=== PATIENT | male | born 1980 | race Caucasian/White ===

== ENCOUNTER → 2016-07-15 | Outpatient (CLI) | payer BC ==
--- NOTE | 2016-07-15 16:25 | REP ---
MR LUMBAR SPINE WITHOUT CONTRAST: HISTORY: Back and right leg pain. Decreased signal intensity on T2-weighted images is present in the L4-5 and L5-S1 intervertebral discs. The L3-4 through L5-S1 intervertebral discs are decreased in height. These findings are consistent with disc degeneration. There is no disc bulge or herniation at the L1-2 and L2-3 levels. The nerves exit the neural foramina without compression. A diffuse disc bulge is present at the L3-4 level. There is minimal compression of the thecal sac. The L3 nerves exit the neural foramina without compression. A diffuse disc bulge and a mild sized central disc extrusion are present at the L4-5 level. There is inferior migration of the disc material. There is mild compression of the thecal sac and L5 nerves as they exit the thecal sac and in the left L5 lateral recesses. There is hypertrophy of the posterior articulating facets. The L4 nerves exit the neural foramina without compression. A diffuse disc bulge and small left paracentral and intraforaminal disc protrusion are present at the L5-S1 level. The disc protrusion abuts the left S1 nerve. There is no thecal sac compression. There is hypertrophy of the posterior articulating facets. There are 2 mm of retrolisthesis of L5 on S1. The L5 nerves exit the neural foramina without compression. The conus medullaris is normal in appearance terminating at the level of the T12-L1 intervertebral disc . Normal signal intensity is present in the lumbar vertebral bodies. IMPRESSION: 1. Diffuse disc bulge at the L3-4 level with minimal thecal sac compression. 2. Diffuse disc bulge and mild sized central disc extrusion at the L4-5 level with mild compression of the thecal sac and L5 nerves as they exit the thecal sac and in the L5 lateral recesses. 3. Diffuse disc bulge and small left paracentral and intraforaminal disc protrusion at the L5-S1 level. The disc protrusion abuts the left S1 nerve. Signed by Vidal Gu MD 07/15/2016 04:42 P
== END ==
LOC: M RAD 14:43
PROVIDERS: ATTEND Chiropractor
DX: M51.26 Other intervertebral disc displacement, lumbar region (principal); M51.27 Other intervertebral disc displacement, lumbosacral region

== ENCOUNTER → 2016-08-01 | Outpatient (REF) | payer BC ==
[~2016-08-01] MED LIST: CYCL10TA PO; GABA600T PO; NAPR500T2 PO; [UNRECOGNIZED DRUG - CODE] IV
== END ==
LOC: M LABDRAW1 15:05
PROVIDERS: ATTEND Orthopaedic Surgery
DX: M51.26 Other intervertebral disc displacement, lumbar region (principal)

== ENCOUNTER 2016-08-09 14:01 | Day surgery (SDC) | payer BC ==
[~2016-08-09] VITALS: Ht 182.9 cm; Wt 81.6 kg
[~2016-08-09 14:01] MED LIST changes: +CelecoXIB (CeleBREX) 100 MG CAP PO ONE; -NAPR500T2 PO; +NAPR500T3 PO; +PERCOCET 5MG/325MG TAB PO ONE; +PREGABALIN 75 MG CAP(LYRICA) PO ONE; -[UNRECOGNIZED DRUG - CODE] IV
[2016-08-09] MEDS ORDERED: LR 1,000 ML IV ONE (14:15)
[2016-08-09] MEDS ORDERED: [UNRECOGNIZED DRUG - CODE] IM (14:29)
[2016-08-09] MEDS ORDERED: BUPIVACAINE/EPIN 0.25% 30 ML VIAL As Ordered ONE (16:59)
[2016-08-09] MEDS ORDERED: BACITRACIN PWD 50,000 UNITS VIAL As Ordered ONE (17:00)
[2016-08-09] MEDS ORDERED: THROMBIN SOLN 20,000 UNITS KIT As Ordered ONE (17:00)
[2016-08-09] MEDS ORDERED: ceFAZolin 2 GM/D5W 50 ML IV BAG (J0690) As Ordered ONE (17:38)
[2016-08-09] MEDS ORDERED: PROPOFOL 200 MG/20 ML VIAL As Ordered ONE (17:48)
[2016-08-09] MEDS ORDERED: fentaNYL 250 MCG/5 ML INJECTION (J3010) As Ordered ONE (17:48)
[2016-08-09] MEDS ORDERED: MIDAZOLAM INJ 2 MG/2 ML VIAL (J2250) As Ordered ONE (17:48)
[2016-08-09] MEDS ORDERED: ROCURONIUM BROMIDE 50 MG/5 ML VIAL/SYRINGE As Ordered ONE ×2 (17:48→18:29)
[2016-08-09] MEDS ORDERED: LIDOCAINE 2% INJ 100 MG/5 ML SDV (FOR ANES.) As Ordered ONE (17:48)
[2016-08-09] MEDS ORDERED: NEOSTIGMINE 1MG/ML 5 ML SYRINGE (J2710) As Ordered ONE (18:28)
[2016-08-09] MEDS ORDERED: GLYCOPYRROLATE INJ 0.2 MG/ML 2 ML VIAL As Ordered ONE (18:28)
[2016-08-09] MEDS ORDERED: ONDANSETRON 4MG/2ML VIAL (J2405) As Ordered ONE ×2 (18:28→19:31)
[2016-08-09] MEDS ORDERED: HYDROmorphone HCL 2 MG/ML 1ML VIAL (J1170) As Ordered ONE (18:31)
--- NOTE | 2016-08-09 18:34 | REP ---
Clinical: Herniated disc. Technique: Portable intraoperative cross-table view. Findings: Single portable cross-table view of the lumbosacral spine demonstrates probe of the up posterior approach at the L4-5 interspinous level. Impression: Probe at the L4-5 level. Signed by Donnie Bhardwaj MD 08/09/2016 06:25 P
[2016-08-09] MEDS ORDERED: DESFLURANE 240 ML INHALANT As Ordered ONE (18:56)
[2016-08-09] MEDS ORDERED: D5W/LR 1,000 ML IV SCH (19:45)
[2016-08-09] MEDS ORDERED: ONDANSETRON 4MG/2ML VIAL (J2405) IV PRN (19:45)
[2016-08-09] MEDS ORDERED: LR 1,000 ML IV SCH (19:45)
[2016-08-09] MEDS ORDERED: fentaNYL 100 MCG/2 ML INJECTION (J3010) IV PRN (19:45)
[2016-08-09] MEDS ORDERED: PERCOCET 5MG/325MG TAB PO PRN ×2 (19:45)
[2016-08-09] MEDS ORDERED: MEPERIDINE INJ 25 MG/ML VIAL (J2175) IV PRN (19:45)
[2016-08-09] MEDS ORDERED: HYDROmorphone HCL 1 MG/ML SYRINGE (J1170) IV PRN ×2 (19:45)
[2016-08-09] MEDS ORDERED: PROMETHAZINE INJ 25 MG/ML VIAL (J2550) IV PRN (19:45)
[2016-08-09] MEDS ORDERED: METOCLOPRAMIDE INJ 10MG/2ML VIAL (J2765) IV PRN (19:45)
[2016-08-09 20:30] VITALS: BP 172/108
[2016-08-09] MEDS: DOCUSATE SODIUM 100 MG CAP PO SCH (21:17)
[2016-08-09] MEDS: ASCORBIC ACID 500 MG TAB PO SCH (21:17)
[2016-08-09] MEDS: PREGABALIN 50 MG CAP (LYRICA) PO SCH (21:18)
[2016-08-09 21:30] VITALS: BP 129/93
[2016-08-09 22:30] VITALS: BP 152/72
[2016-08-09 23:30] VITALS: BP 141/88
[2016-08-10 00:30] VITALS: BP 119/79
[2016-08-10] MEDS: PERCOCET 5MG/325MG TAB PO PRN ×2 (03:57→09:16)
[2016-08-10 04:00] VITALS: BP 111/70
[2016-08-10 08:30] VITALS: BP 124/87
[2016-08-10] MEDS ORDERED: CelecoXIB (CeleBREX) 100 MG CAP PO ONE (09:00)
[2016-08-10] MEDS: DOCUSATE SODIUM 100 MG CAP PO SCH (09:05)
[2016-08-10] MEDS: ASCORBIC ACID 500 MG TAB PO SCH (09:05)
[2016-08-10] MEDS: PREGABALIN 50 MG CAP (LYRICA) PO SCH (09:05)
--- NOTE | 2016-08-11 08:27 | RO ---
DATE OF PROCEDURE: 08/09/2016 PREOPERATIVE DIAGNOSIS: Right lower extremity radiculopathy secondary to right L4-5 disc herniation/extrusion. POSTOPERATIVE DIAGNOSIS: Right lower extremity radiculopathy secondary to right L4-5 disc herniation/extrusion. PROCEDURE PROPOSED: Right L4-5 microdiscectomy for decompression of thecal sac and nerve roots. INTRAOPERATIVE FINDINGS: Include larger than expected disc herniation extruded at L4-5. SURGEON: Dr. Ad Gonsalez HAZARDOUS MATERIAL TECHNICIAN: Freddie Willoughby, KRIS ANESTHESIA: General endotracheal. ESTIMATED BLOOD LOSS: Less than 30 mL, replaced with crystalloid. COMPLICATIONS: No complications. INDICATIONS: Intractable pain on the right lower extremity for a number of weeks despite conservative management, failure of epidural injections. The patient has elected for microdiscectomy. Consent reviewed in detail with the patient, including steve discussion of the pathology involved, procedure proposed, alternatives including doing nothing or fusion surgery, risks, including, but not limited to pain, failure, incomplete relief, need for additional surgery, nerve injury, bleeding, blood clots or other problems such as infection. The patient agreed to proceed with surgery. DESCRIPTION OF PROCEDURE: Identified in the holding area. Site and side verified. Brought to the operating room. General endotracheal anesthesia was administered. He was positioned on the Jimy frame for exposure of the lumbar spine. I stood on the patient's right side, Mr. Willoughby on the patient's left side. A time-out was accomplished. Incision was outlined with a marking pen based on bony landmarks. Skin infiltrated with 0.25% Marcaine with epinephrine. Spinal needle was placed at 4-5. Cross-table lateral obtained to verify level. Incision was made with a 10 blade knife and developed down through skin and subcuticular tissues of the posterior lumbar fascia. The posterior lumbar fascia was reflected off the spinous processes of 4-5 and dissection continued down to the 4-5 interspace, which was exposed. A divot was drilled in the posterior lamina with the high-speed drill and a Sevilla-Woodrow was placed in the lamina divot. This verified level at L4-5 with a cross-table lateral x-ray. Next, once this was accomplished, my loupes were removed and the operating microscope was brought in for the procedure. This facilitated participation of Mr. Willoughby, my licensed nursing assistant. Next, high-speed bur was utilized to implement a right unilateral laminotomy extending superiorly to lamina 4 so that I could elevate ligamentum flavum using curved curette. Inferiorly, also at the lamina of 5. Once the ligamentum flavum was elevated with a curette. I utilized Kerrisons to remove ligamentum flavum and exposing the thecal sac. Next, a Sevilla-Woodrow was utilized to reflect thecal sac medially. Mr. Willoughby also retracted with the Jaren retractor. Next, disc material was appreciated, posterior longitudinal ligament was opened, annulus had a rupture. Disc material was able to be freed using a Sevilla-Woodrow, as well as using pituitaries. The disc material was larger than expected on the MRI, extruded and elevating the axillary, as well as the shoulder of the L5 nerve root. Next, disc material was removed in one large fragment and several small fragments. Bipolar cautery was utilized for hemostasis. Thecal sac was inspected and found to be free from leaks and there was no active bleeding. Thrombin Gelfoam was utilized and removed at the conclusion of the case. Next, irrigation was accomplished, including irrigation of concentrated bacitracin. Next, I did spray a very thin layer of DuraSeal over the thecal sac as an adhesion barrier. Next, retractors were removed. Posterior lumbar fascia reapproximated with interrupted stitch, deep dermis with interrupted stitch. Pernio dressing was applied. The patient log-rolled to hospital bed, extubated, moved to recovery room in good condition. Of note, the patient appeared to have better motor function and decreased pain in the recovery room. For further details, please refer to the medical record. Mr. Willoughby was present and participated in the entirety of the case.
--- NOTE | 2016-08-21 15:24 | DSES ---
DATE OF ADMISSION: 08/09/2016 DATE OF DISCHARGE: 08/10/2016 ATTENDING PHYSICIAN: Dr. Ad Gonsalez ADMITTING DIAGNOSIS: Right lower extremity radiculopathy secondary to L4-5 disc herniation. DISCHARGE DIAGNOSIS: Right lower extremity radiculopathy secondary to L4-5 disc herniation, status post right L4-5 micro-discectomy for decompression of thecal sac and nerve roots. HISTORY OF PRESENT ILLNESS: The patient is a 36-year-old male with intractable right lower extremity pain for a number of weeks despite conservative treatment and failure of epidural steroid injections. He elected for a right L4-5 micro-discectomy with Dr. Gonsalez. OPERATION PERFORMED: Right L4-5 micro-discectomy for decompression of thecal sac and nerve roots. HOSPITAL COURSE: The patient underwent a right L4-5 micro-discectomy under general anesthesia which was uneventful. His hospital course was without complication and he was discharged on oral pain medications. He was instructed to resume his preoperative medications and diet. The patient will use his thromboembolic-deterrent stockings as recommended to prevent deep vein thrombosis. He will followup in our office in approximately three days for reevaluation or sooner if there is any increased pain, drainage, bleeding, redness, numbness, tingling or radiating pain into his legs, fever greater than 101 degrees, or any other concerns. Please see the medical record for additional details. AAKASH
== END 2016-08-10 10:30 | disposition home or self-care (01) ==
LOC: M SDC 14:01 → M PED 20:21 → M SDC 08-10 10:30
PROVIDERS: ATTEND Orthopaedic Surgery
DX: M51.16 Intervertebral disc disorders with radiculopathy, lumbar region (principal); R20.0 Anesthesia of skin; F17.210 Nicotine dependence, cigarettes, uncomplicated; Z79.899 Other long term (current) drug therapy; Z91.013 Allergy to seafood
CPT/HCPCS: 36415; 63030; 72110; 86850; 86900; 86901; 88304; 96361; 96375; 96376; C1763; J0690; J1170; J2250; J2405; J2710; J3010

== ENCOUNTER 2016-08-12 12:48 | Inpatient (IN) | payer BC ==
[~2016-08-12] VITALS: Ht 182.9 cm; Wt 80.0 kg
[~2016-08-12 12:48] MED LIST changes: -CelecoXIB (CeleBREX) 100 MG CAP PO ONE; -PERCOCET 5MG/325MG TAB PO ONE; -PREGABALIN 75 MG CAP(LYRICA) PO ONE; +[UNRECOGNIZED DRUG - CODE] IM
[2016-08-12] MEDS ORDERED: MORPHINE 4 MG/ML 1ML SYRINGE IV ONE ×2 (13:45→14:30)
[2016-08-12] MEDS ORDERED: ACETAMINOPHEN TAB 650MG DOSE (2X325MG) PO ONE (14:00)
[2016-08-12] MEDS ORDERED: NS 1,000 ML IV ONE (14:00)
[2016-08-12 14:08] LABS: BASO # 0.1 K/mm3 (0.0-0.2); BASO % 0.6 % (0.0-1.0); EOS % 0.5 % (0.0-3.0); LARGE UNSTAINED CELL # 0.2 K/mm3 (0.0-0.4); LARGE UNSTAINED CELL % 1.7 % (0.0-4.0); LYMPH # 1.9 K/mm3 (1.5-4.5); LYMPH % 20.2 % (24.0-44.0); MEAN CORPUSCULAR HEMOGLOBIN 36.1 pg (27.0-33.0); MEAN CORPUSCULAR VOLUME 103.2 fl (80.0-96.0); MONO # 0.6 K/mm3 (0.0-0.8); MONO % 6.8 % (0.0-5.0); NEUTROPHILS # 6.6 K/mm3 (1.8-7.7); NEUTROPHILS % 70.1 % (36.0-66.0); PLATELET COUNT, AUTOMATED 191 k/mm3 (150-450); RED CELL DISTRIBUTION WIDTH 12.1 % (11.5-14.5); WHITE BLOOD COUNT 9.5 K/mm3 (4.0-10.0)
[2016-08-12 14:28] LABS: ALBUMIN 3.5 GM/DL (3.2-5.2); ALKALINE PHOSPHATASE 47 U/L (45-117); ALT/SGPT 50 U/L (12-78); AST/SGOT 27 U/L (15-37); BILIRUBIN,DIRECT 0.2 MG/DL (0.0-0.2); BILIRUBIN,TOTAL 1.3 MG/DL (0.2-1.0); TOTAL PROTEIN 7.4 GM/DL (6.4-8.2)
[2016-08-12] MEDS ORDERED: BUPIVACAINE/EPIN 0.25% 30 ML VIAL As Ordered ONE (14:31)
[2016-08-12] MEDS ORDERED: BACITRACIN PWD 50,000 UNITS VIAL As Ordered ONE (14:31)
[2016-08-12] MEDS ORDERED: ROCURONIUM BROMIDE 50 MG/5 ML VIAL/SYRINGE As Ordered ONE (14:31)
[2016-08-12] MEDS ORDERED: dexameTHASONE 4 MG/ML 1ML VIAL (J1100) As Ordered ONE (14:31)
[2016-08-12] MEDS ORDERED: THROMBIN SOLN 20,000 UNITS KIT As Ordered ONE (14:31)
[2016-08-12] MEDS ORDERED: fentaNYL 100 MCG/2 ML INJECTION (J3010) IV ONE (15:00)
--- NOTE | 2016-08-12 15:31 | CR ---
DATE OF CONSULTATION: 08/12/2016 ATTENDING PHYSICIAN: Ad Gonsalez MD CHIEF COMPLAINT: Increasing back pain, inability to walk. HISTORY: This is a pleasant 36-year-old male patient that on 08/09/2016 underwent a right unilateral decompression of L4-[address] Gonsalez. He did extremely well post operatively and on 08/10 he was discharged to home. At that point he was having no difficulties, his back pain had actually resolved and very minimal soreness in his back and no pain down his right leg at all. 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 On Friday he awoke from bed and was feeling a little bit uncomfortable with some soreness in his back and around 11:00 p.m. he developed severe pain in his back and inability to ambulate. He needed assistance to get around. He denied any incontinence. Denied any injury, denied lifting or carrying any items, noted just increased back pain, inability to completely stand erect and severe pain down his right leg. He attempted to drink some water. That made him nauseated. He tried to eat a bite of pizza. That made him nauseated. That was around 2:00 on Friday, 08/11. He had progressively noted that he felt weakness in both lower extremities. He started to develop chills, fevers and when he coughed his right leg pain increased and his back pain increased. He then went to bed. He did not arise again until 11: 00 this morning and when he to get out of bed; he was unable to get out of bed. He rated his pain as 10/10, so severe that he had to have assistance from his girlfriend to stand erect. With her assistance, he was able to walk slowly to the bathroom. He was able to urinate. There was no loss of urine control. No loss of fecal control. But he had severe pain down his right leg, weakness in his lower extremities. He felt weakness in both hips and he was unable to stand completely erect. His girlfriend then assisted to get to the bed where she would have to help him roll over. He called the orthopedic group where he was directed to the emergency room due to his inability to ambulate without assistance and his increased back pain. He continues to complain of feeling hot all over, he feels that he is chilled. He feels severe back pain and weakness in the right lower extremity. He again continues denying loss of bowel or bladder control. Denies any chest pain and shortness breath. Denies difficulty breathing. Does note fevers and chills and increased back pain and pain down his right leg. ALLERGIES: BEE STINGS. SHRIMP. CURRENT MEDICATIONS: - Naproxen 500 mg twice a day - gabapentin 600 mg three times a day - Percocet 5/325 as needed for pain PAST SURGICAL HISTORY: Includes the above-mentioned right L4-5 unilateral decompression on 08/09/2016. PAST MEDICAL HISTORY: Negative, except for the L4-5 disc herniation and lumbar degenerative disc disease. It should be noted that prior to the surgery he had persistent right leg pain and back pain. REVIEW OF SYSTEMS: See HPI. PHYSICAL EXAMINATION: Reveals a well-nourished, well-developed, alert male patient in obvious distress. He grimaces with attempting to roll over into the bed. He lays in the position on the hospital stretcher. He is unable to roll over or change positions without assistance. Deep tendon reflexes is 1 at the left ankle, absent at the right ankle, trace at both knees. There is decreased light touch along the dorsum of the foot on the right side as well as over the right great toe on exam. Perirectal and peritesticular sensation is intact. Muscle strength is 3/5 in EHL and ankle dorsiflexion on the right side. Quad and hip flexor appears to be 5/5 though difficult to tell on the right side as he has severe breakthrough pain with muscle testing. Left-sided muscle strength seems grossly 5/5 in the major muscle groups. Exam of the wound does reveal some increased warmth to touch around the wound. There is no discharge noted. There is quite significant tenderness to light touch. SI joints were nontender to palpation. Dorsalis pedis, posterior tibial pulses are palpable on exam. No pain on passive range of motion of the great toes on either side. The calves are soft, nontender to palpation. Unable to do straight leg raise testing due to his inability completely either leg. Unable to do gait training due to his current pain. Neck is supple without adenopathy or jugular venous distention (JVD). Lungs are clear to auscultation without rales or wheeze. Heart: Regular rate and rhythm though it is rapid. Current vital signs: Blood pressure 122/79, pulse 110, temperature 100.7, respirations 18, oxygen saturation of 98.0. IMPRESSION: Severe worsening back pain and inability to ambulate without assistance. PLAN: I discussed the patient with Dr. Gonsalez. He needs a stat MRI with and without contrast. Will also obtain CBC, sedimentation rate, C-reactive protein, chemistry and the urinalysis. Will start an IV TKO, morphine for pain control. Blood cultures were obtained as well. Will also get the process going for an surgical exploration of his wound. AAKASH
[2016-08-12 15:34] LABS: ANION GAP 8 MEQ/L (8-16); BLOOD UREA NITROGEN 10 MG/DL (7-18); CARBON DIOXIDE LEVEL 28 MEQ/L (21-32); CHLORIDE LEVEL 101 MEQ/L (98-107); GLOMERULAR FILTRATION RATE > 60.0 (>60); GLUCOSE, FASTING 77 MG/DL (70-105); POTASSIUM SERUM 4.2 MEQ/L (3.5-5.1); SODIUM LEVEL 137 MEQ/L (136-145)
[2016-08-12] MEDS ORDERED: fentaNYL 100 MCG/2 ML INJECTION (J3010) As Ordered ONE ×3 (16:02→18:52)
[2016-08-12] MEDS ORDERED: MIDAZOLAM INJ 2 MG/2 ML VIAL (J2250) As Ordered ONE (16:03)
[2016-08-12] MEDS ORDERED: OXYC1TAB23 PO (16:39)
[2016-08-12] MEDS ORDERED: ceFAZolin 1GM INJ (J0690) As Ordered ONE (16:45)
[2016-08-12] MEDS ORDERED: VANCOMYCIN 1000 MG/20 ML VIAL (J3370) As Ordered ONE (16:45)
--- NOTE | 2016-08-12 17:20 | REPUSA ---
MRI of the lumbar spine with and without contrast Clinical statement: Pain. Patient status postsurgery. Rule out abscess. Technique: Multiecho multiplanar MRI images of the lumbar spine were obtained before and after admin istration of intravenous gadolinium contrast. comparison: 07/15/2016. Findings: The lumbar vertebral bodies are in satisfactory position and alignment. Right-sided laminec birgit changes are noted at L4 and L5. Postsurgical edema is noted, without any loculated fluid collect ions. No fractures or dislocations are demonstrated. Normal heterogeneous bone marrow signal is noted . No osseous tumors are seen. The intervertebral disc heights are well maintained and demonstrate nor mal signal. The filum terminale and conus medullaris appear unremarkable. The spinal cord demonstrate s normal signal and contour. The surrounding soft tissues are within normal limits. At L3/L4, there is a mild disc osteophyte complex and disc bulge. There is no evidence of disc herni ation or title canal stenosis. The neural foramen are patent. At L4/L5, there is a large central disc protrusion measuring 0.8 x 1.9 cm. Significant mass effect o n the central canal is noted. There is a focal area of increased signal in the posterior disc at this level. There is moderate bilateral neural foraminal narrowing. At L5/S1, there is a mild disc osteophyte complex and disc bulge. There is no evidence of disc hernia tion or central canal stenosis. The neural foramen are patent. Impression: 1. Right-sided laminectomy changes at L4/L5. Postsurgical changes are seen at the site, but no locula reynaldo fluid collection to suggest abscess or hematoma. 2. Large central disc protrusion at L4/L5 with significant mass of the central thecal sac. Moderate bilateral neural foraminal narrowing is noted. 3. Stable mild disc bulging at L3/L4 and L5/S1.
[2016-08-12] MEDS ORDERED: ceFAZolin 2 GM/D5W 50 ML IV BAG (J0690) As Ordered ONE (17:38)
[2016-08-12] MEDS ORDERED: LABETALOL HCL 100 MG/20 ML VIAL As Ordered ONE (17:45)
[2016-08-12] MEDS ORDERED: HYDROmorphone HCL 2 MG/ML 1ML VIAL (J1170) As Ordered ONE (17:46)
[2016-08-12] MEDS ORDERED: PROPOFOL 200 MG/20 ML VIAL As Ordered ONE (17:57)
[2016-08-12] MEDS ORDERED: ONDANSETRON 4MG/2ML VIAL (J2405) As Ordered ONE (18:06)
[2016-08-12] MEDS ORDERED: SUGAMMADEX SODIUM 500 MG/5 ML VIAL (BRIDION) As Ordered ONE (18:22)
[2016-08-12] MEDS ORDERED: PERCOCET 5MG/325MG TAB As Ordered ONE (18:52)
[2016-08-12] MEDS: PERCOCET 5MG/325MG TAB PO PRN ×2 (19:00→23:46)
[2016-08-12] MEDS: fentaNYL 100 MCG/2 ML INJECTION (J3010) IV PRN ×4 (19:03→19:22)
[2016-08-12] MEDS ORDERED: LR 1,000 ML IV SCH (19:15)
[2016-08-12] MEDS ORDERED: ONDANSETRON 4MG/2ML VIAL (J2405) IV PRN (19:15)
[2016-08-12] MEDS: D5W/LR 1,000 ML IV SCH (19:15)
[2016-08-12] MEDS ORDERED: HYDROmorphone HCL 1 MG/ML SYRINGE (J1170) IV PRN (19:15)
[2016-08-12] MEDS ORDERED: PERCOCET 5MG/325MG TAB PO PRN ×2 (19:15)
[2016-08-12] MEDS ORDERED: MORPHINE 4 MG/ML 1ML SYRINGE IV PRN (19:15)
[2016-08-12 19:30] VITALS: BP 133/78
[2016-08-12 20:00] VITALS: BP 130/78
[2016-08-12] MEDS: BACTRIM 160MG/800MG DS TAB PO SCH (20:56)
[2016-08-12] MEDS: GABAPENTIN 300 MG CAP PO SCH (20:56)
[2016-08-12 21:00] VITALS: BP 120/70
[2016-08-12 22:00] VITALS: BP 115/65
[2016-08-12 23:00] VITALS: BP 110/75
[2016-08-13] VITALS: BP 108/71
[2016-08-13 04:00] VITALS: BP 120/62
[2016-08-13] MEDS: PERCOCET 5MG/325MG TAB PO PRN ×2 (04:41→08:51)
[2016-08-13 06:00] VITALS: BP 143/83
[2016-08-13 06:56] LABS: BASO % 0.3 % (0.0-1.0); EOS % 0.4 % (0.0-3.0); LARGE UNSTAINED CELL # 0.1 K/mm3 (0.0-0.4); LARGE UNSTAINED CELL % 0.8 % (0.0-4.0); LYMPH # 0.8 K/mm3 (1.5-4.5); LYMPH % 9.2 % (24.0-44.0); MEAN CORPUSCULAR HEMOGLOBIN 35.9 pg (27.0-33.0); MEAN CORPUSCULAR VOLUME 102.8 fl (80.0-96.0); MONO # 0.4 K/mm3 (0.0-0.8); MONO % 4.3 % (0.0-5.0); NEUTROPHILS # 6.9 K/mm3 (1.8-7.7); PLATELET COUNT, AUTOMATED 214 k/mm3 (150-450); RED CELL DISTRIBUTION WIDTH 12.1 % (11.5-14.5); WHITE BLOOD COUNT 8.1 K/mm3 (4.0-10.0)
[2016-08-13] MEDS ORDERED: BACTRIM 160MG/800MG DS TAB PO ONE (07:15)
[2016-08-13] MEDS ORDERED: BACT800T5 PO (07:43)
[2016-08-13] MEDS: D5W/LR 1,000 ML IV SCH (07:45)
[2016-08-13] MEDS: BACTRIM 160MG/800MG DS TAB PO SCH (08:46)
[2016-08-13] MEDS: GABAPENTIN 300 MG CAP PO SCH (08:46)
--- NOTE | 2016-08-13 09:07 | RO ---
DATE OF PROCEDURE: 08/12/2016 PREOPERATIVE DIAGNOSIS: Epidural fluid collection. POSTOPERATIVE DIAGNOSIS: Epidural hematoma. PROCEDURE: Wound exploration right L4-5 laminotomy defect and evacuation of hematoma. SURGEON: Ad Gonsalez MD SENIOR COMPENSATION CONSULTANT: BARRIE Wade ANESTHESIA: General. INTRAOPERATIVE FINDINGS: Include hematoma, also cultures times two were sent in case of possibility of infection. ESTIMATED BLOOD LOSS: Less than 40 mL replaced with crystalloid. INDICATIONS: 36-year-old male, discectomy on Friday, initial improvement, discharged home Friday and progressive development of discomfort radiating down the right lower extremity and severe pain. He came into the emergency room via ambulance. MRI revealed fluid collection. CONSENT: Reviewed in detail with the patient including a steve discussion of the pathology involved, the procedure proposed, alternatives, risks including but not limited to pain, failure, infection, bleeding blood loss, incomplete relief of symptoms, need for additional surgery and other issues. The patient agreed to proceed. DESCRIPTION OF PROCEDURE: Identified in the holding area. Site side verified. Brought to the operating room. General endotracheal anesthesia was administered. He was positioned for exposure on the Jimy frame. Sterilely prepped, draped in the usual fashion. His perineal dressing was removed carefully using some alcohol as a solvent. Next, he was sterilely prepped and draped in usual fashion using Betadine type solution. Next, I conducted the procedure using 3.5 loupe magnification and a headlamp. Mr. Willoughby stood on the left. I stood on the right. I opened the wound even initially superficially and did appreciate significant hematoma and blood present in the soft tissues. We developed dissection down to the posterior lumbar fascia. Did appreciate a rupture of one of the fascial stitches. The stitches were freed and removed, and I utilized osteotome to reflect the paraspinal down to the thecal sac. The patient seemed to have a significant hematoma and this was irrigated out using suction. I encountered the thecal sac. Removed some friable ligamentum flavum tissue over the traversing fifth nerve root. The fifth nerve root was directly visualized. Appreciated to be in continuity and not compression below. I explored anterior to the fifth nerve root as well as anterior to the thecal sac and I did not appreciate any additional disc extrusion. Next, irrigation was accomplished using saline solution with bacitracin. I also utilized bipolar cauteries to coagulate some inflamed epidurals, but there did not seem to be any dramatic bleeding. Next, the Valsalva to 30 was accomplished by anesthesia and we did not appreciate any cerebrospinal fluid (CSF) leak or any active bleeding. In fact, the Valsalva maneuver stimulated the patient a bit and I suspect that the Valsalva was likely higher than 30. Next, once the patient had settled down a bit, we again visualized the wound. No active bleeding. Again irrigated with saline solution. I did place thrombin Gelfoam and a cottonoid over the traversing nerve root and epidurals and I sprayed the interior of the wound including the paraspinals with some of the remaining thrombin solution from the sprayer. I allowed this to stand for 1 minute and then I removed these items. No Gelfoam was left within the wound. Next, I again observed for any active bleeding and did not appreciate any active bleeding or CSF leak. Next, all retractors were removed. I did not appreciate any bleeding from the paraspinals after removal. I reapproximated lumbar fascia with interrupted stitch. Denis's fascia with interrupted stitch. Deep dermis with interrupted stitch and interrupted nylon was utilized on skin. Dressing applied. Patient extubated, moved to recovery room good condition. Mr. Willoughby was present, participated in this procedure in the capacity of certified surgical tech/first assistant. This included using the suction retractor to assist in retracting the traversing nerve root and thecal sac so that I could explore anterior to the thecal sac with a probe. For further details, please refer to medical record. AAKASH
--- NOTE | 2016-08-21 15:35 | DSES ---
DATE OF ADMISSION: 08/12/2016 DATE OF DISCHARGE: 08/13/2016 ATTENDING PHYSICIAN: Dr Ad Gonsalez ADMITTING DIAGNOSIS: Epidural fluid collection status post right L4-5 microdiscectomy. DISCHARGE DIAGNOSIS: Epidural hematoma. HISTORY OF PRESENT ILLNESS: The patient is a 36-year-old male who underwent a microdiscectomy and was discharged home due to his initial improvement in symptoms. He had progressively worsening levels of discomfort that started radiating into the right lower extremity with severe pain. He was brought to the emergency room via ambulance and MRI revealed a fluid collection. Patient elected for a wound exploration of his right L4-5 laminectomy defect for the evacuation of the hematoma with Dr. Gonsalez. OPERATION PERFORMED: Wound exploration of a right L4-5 laminectomy defect and evacuation of hematoma. HOSPITAL COURSE: The patient underwent a wound exploration of a right L4-5 laminectomy defect with subsequent evacuation of an epidural hematoma. Surgery was uneventful. His hospital course was without complication and he was discharged on oral pain medication. He was instructed to resume his preoperative medications and diet. He will use his thromboembolic deterrent stockings as directed to prevent deep venous thrombosis. He will followup in our office in approximately 3 days or sooner if there is any increased pain, drainage, bleeding, redness, numbness, tingling or radiating symptoms into his legs, fever greater than 101 degrees or any other concerns. Please see medical record for additional details. AAKASH
== END 2016-08-13 09:10 | disposition home or self-care (01) | DRG 791 ==
LOC: EDBD 12:48 → M ED 12:48 → M ED INP 16:15 → M MS5PR 19:35
PROVIDERS: ADMIT Orthopaedic Surgery; ATTEND Orthopaedic Surgery
PROC: 0J970ZZ Drainage of Back Subcutaneous Tissue and Fascia, Open Approach (ICD-10-PCS; principal; 2016-08-12 14:13)
DX: L76.32 Postprocedural hematoma of skin and subcutaneous tissue following other procedure (principal); Z91.013 Allergy to seafood; Z91.030 Bee allergy status; Z98.890 Other specified postprocedural states

== ENCOUNTER 2019-04-24 11:40 | Inpatient (IN) | payer BC ==
[~2019-04-24] VITALS: Ht 182.9 cm; Wt 81.6 kg
[~2019-04-24 11:40] MED LIST changes: +BACT800T5 PO; -GABA600T PO; +GABA600T4 PO; +NAPR-885 PO; -NAPR500T3 PO; +OXYC1TAB23 PO; +[UNRECOGNIZED DRUG - CODE] IM; -[UNRECOGNIZED DRUG - CODE] IM
[2019-04-24] MEDS ORDERED: AMLO-179 (12:06)
[2019-04-24] MEDS ORDERED: KETOROLAC 60 MG/2 ML VIAL (J1885) IM ONE (13:00)
[2019-04-24] MEDS ORDERED: diazePAM 5 MG TAB PO ONE (13:00)
[2019-04-24] MEDS ORDERED: ACETAMINOPHEN 325 MG TAB PO ONE (13:00)
[2019-04-24 13:18] LABS: BASO % 0.6 % (0.0-1.0); EOS # 0.1 10^3/uL (0.0-0.5); EOS % 1.2 % (0.0-3.0); HEMATOCRIT 47.8 % (42.0-52.0); HEMOGLOBIN 16.7 g/dl (13.5-17.5); LYMPH # 2.3 10^3/uL (1.5-5.0); MEAN CORPUSCULAR HEMOGLOBIN 35.5 pg (27.0-33.0); MEAN CORPUSCULAR HGB CONC 34.9 g/dl (32.0-36.5); MEAN CORPUSCULAR VOLUME 101.7 fl (80.0-96.0); MONO # 0.7 10^3/uL (0.0-0.8); MONO % 10.6 % (0.0-5.0); NEUTROPHILS # 3.8 10^3/uL (1.5-8.5); NEUTROPHILS % 54.3 % (36.0-66.0); PLATELET COUNT, AUTOMATED 213 10^3/uL (150-450); WHITE BLOOD COUNT 6.9 10^3/uL (4.0-10.0)
[2019-04-24] MEDS ORDERED: GABAPENTIN 300 MG CAP PO ONE (13:45)
[2019-04-24] MEDS ORDERED: LIDOCAINE 5% (LIDODERM) PATCH TD ONE (13:45)
[2019-04-24] MEDS ORDERED: MORPHINE 4 MG/ML 1ML VIAL/SYRINGE (J2270) IV ONE ×3 (13:45→16:45)
[2019-04-24 13:59] LABS: ERYTHROCYTE SEDIMENTATION RATE 1 mm/hr (0-15)
[2019-04-24] MEDS ORDERED: MORPHINE 2 MG/ML 1ML VIAL (J2270) IV ONE (15:00)
[2019-04-24] MEDS ORDERED: methylPREDNISolone INJ 125 MG/2 ML VIAL (J2930) IV ONE (15:00)
[2019-04-24] MEDS ORDERED: LORazepam 2 MG/ML VIAL (J2060) IV STA (16:35)
[2019-04-24] MEDS ORDERED: MORPHINE 10 MG/ML 1ML VIAL (J2270) IV ONE (17:00)
[2019-04-24] MEDS ORDERED: PROHANCE 279.3MG/ML 5ML VIAL (A9576) As Ordered ONE (17:24)
[2019-04-24] MEDS ORDERED: PROHANCE 279.3MG/ML 15ML VIAL (A9576) As Ordered ONE (17:24)
--- NOTE | 2019-04-24 19:08 | REPVR ---
PROCEDURE INFORMATION: Exam: MR Lumbar Spine Without and With Contrast. Exam date and time: 04/24/2019 5:49 PM Age: 38 years old Clinical indication: Low back pain and sciatica; Right; Prior surgery; Surgery date: 6+ months; Surgery type: Laimnectomy; Patient HX: PT states severe lbp into RT hip, PT has HX of laminectomy, as well as spinal injections last one being 04/21/2019, PT was given 16cc prohance, best images due to PT condition, ; additional info: RT side sciatica, HX of l4-l5 disc herniation TECHNIQUE: Imaging protocol: Multiplanar magnetic resonance images of the lumbar spine without and with intravenous contrast. Contrast material: PROHANCE; Contrast volume: 16 ml; Contrast route: 20G; COMPARISON: MRI-LS SPINE W/O FOLL WITH CON 08/12/2016 3:01 PM FINDINGS: Vertebrae: There may be an acute Schmorl's node/intravertebral body disc herniation into the superior endplate of L5 posteriorly since edema is seen on the STIR and T2 weighted sequence- series 301, image 1 frame 8. It mildly enhances with gadolinium administration. Spinal cord: The conus medullaris appears to be at the L1-L2 level. L1-L2: No significant disc disease. No significant spinal canal stenosis. No neural foraminal stenosis. L2-L3: No significant disc disease. No significant spinal canal stenosis. No neural foraminal stenosis. L3-L4: There may be an asymmetrically bulging annulus narrowing the left neural foramen which could affect the left L3 nerve root. Series 801, image 1 frame 20. There is no spinal canal stenosis. L4-L5: Degenerative facet arthropathy. Prior right hemilaminectomy at this level. Both neural foramen appear patent. There is enhancing tissue in the ventral spinal canal which may represent recurrent disc herniation or dilatation of the venous plexus. Series 801, image 1 frame 10, series 701, image 1 frame 8. L5-S1: No spinal canal stenosis. Mild to moderate narrowing of the left neural foramen. Soft tissues: There is mild enhancement of the possible Schmorl's node superior endplate of L5 without further significant contrast enhancement. IMPRESSION: The examination is limited due to patient motion particularly axial sequences however there may be recurrent disc herniation at the L4-L5 level which is central potentially affecting both exiting L5 nerve roots. There also may be an acute Schmorl's node/intravertebral body disc herniation into the superior endplate of L5 which could be a source of pain. Electronically signed by: Ashley Elam On 04/24/2019 19:07:54 PM
[2019-04-24] MEDS: **NOTE PATIENT COMMENT** MISC XX SCH (21:00)
[2019-04-24] MEDS ORDERED: PERCOCET 5MG/325MG TAB PO PRN (21:30)
[2019-04-24 22:00] VITALS: BP 161/89
[2019-04-24] MEDS: PERCOCET 5MG/325MG TAB PO PRN (22:30)
[2019-04-24] MEDS: GABAPENTIN 300 MG CAP PO SCH (22:31)
[2019-04-24] MEDS: KETOROLAC 30 MG/ML VIAL (J1885) IV SCH (22:31)
[2019-04-25] MEDS: MORPHINE 4 MG/ML 1ML VIAL/SYRINGE (J2270) IV PRN ×2 (00:23→06:43)
[2019-04-25 02:00] VITALS: BP 126/78
[2019-04-25] MEDS: KETOROLAC 30 MG/ML VIAL (J1885) IV SCH ×4 (03:52→22:36)
[2019-04-25] MEDS: PERCOCET 5MG/325MG TAB PO PRN ×3 (03:53→18:51)
[2019-04-25] MEDS ORDERED: zolPIDEM TARTRATE 5 MG TAB PO PRN (05:45)
[2019-04-25 06:00] VITALS: BP 130/71
[2019-04-25] MEDS: NICOTINE 21MG/24HR 1 EA TRANSDERMAL TD PRN (06:46)
[2019-04-25] MEDS: GABAPENTIN 300 MG CAP PO SCH ×3 (09:26→20:55)
[2019-04-25] MEDS: CelecoXIB 400 MG CAP PO SCH (09:26)
[2019-04-25] MEDS: MORPHINE 15 MG SA TAB PO SCH ×2 (09:28→20:54)
--- NOTE | 2019-04-25 10:41 | REP ---
REASON: History of L5-S1 laminectomy. Only AP and lateral views were obtained with the patient standing. The only prior comparison is cross-table lateral views of the lumbar spine intraoperatively. There is no change in appearance of the disc spaces. There is no change in appearance of vertebral body height or alignment. Unreviewed
[2019-04-25 14:00] VITALS: BP 153/104
[2019-04-25] MEDS: amLODIPine 5 MG TAB PO SCH (20:56)
[2019-04-25] MEDS: **NOTE PATIENT COMMENT** MISC XX SCH (20:56)
[2019-04-25 22:00] VITALS: BP 150/100
[2019-04-26 00:30] VITALS: BP 138/81
[2019-04-26] MEDS: PERCOCET 5MG/325MG TAB PO PRN (01:54)
[2019-04-26 02:00] VITALS: BP 116/84
[2019-04-26] MEDS: KETOROLAC 30 MG/ML VIAL (J1885) IV SCH ×2 (04:10→09:36)
[2019-04-26 06:00] VITALS: BP 130/95
[2019-04-26] MEDS ORDERED: PERC5TAB12 PO (06:15)
[2019-04-26] MEDS ORDERED: MS C15TA8 PO (06:15)
[2019-04-26] MEDS ORDERED: GABA600T4 PO (06:15)
[2019-04-26] MEDS ORDERED: CELE1CAP4 PO (06:15)
[2019-04-26] MEDS: NICOTINE 21MG/24HR 1 EA TRANSDERMAL TD PRN (07:19)
[2019-04-26 09:35] VITALS: BP 130/95
[2019-04-26] MEDS: CelecoXIB 400 MG CAP PO SCH (09:35)
[2019-04-26] MEDS: MORPHINE 15 MG SA TAB PO SCH (09:35)
[2019-04-26] MEDS: amLODIPine 5 MG TAB PO SCH (09:35)
[2019-04-26] MEDS: GABAPENTIN 300 MG CAP PO SCH (09:35)
--- NOTE | 2019-04-26 17:34 | HPE ---
DATE OF CONSULTATION: 04/24/2019 He was admitted on 04/24/2019 by myself via the emergency room (ER) yesterday evening. CHIEF COMPLAINT: Right leg pain. HISTORY OF PRESENT ILLNESS: Chris is a 38-year-old male who had a discectomy on the right at 4-5 back in 2017. He had a postoperative hematoma that was evacuated but other than that improved. He recently developed right lower extremity radicular discomfort, recently had an epidural injection because of extreme discomfort in the right lower extremity, had initial relief with the epidural injection, but this past Friday had the onset of severe pain and ended up coming to the emergency room. An MRI was eventually done in the emergency room which reflects a right paracentral disc bulge at 4-5 that probably has a foraminal component. No central stenosis. No evidence of infection. The disc herniation though relatively small does likely impinge, in my opinion, on the fourth nerve root. ALLERGIES: No known drug allergies. PAST MEDICAL HISTORY: No medical problems. MEDICATIONS AT HOME: He was on anti-inflammatories prior to admission and gabapentin. PAST SURGICAL HISTORY: As above, previous discectomy in 2017 on the right at 4-5. SOCIAL HISTORY: He does use nicotine products, smokes nearly a pack a day. 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 He does consume alcoholic beverages socially. REVIEW OF SYSTEMS: He is only complaining of right lower extremity pain. He is not complaining of headache, nauseousness, shortness of breath, chest pain, abdominal pain, endocrine troubles, skin troubles, rashes, endocrine troubles or other problems. CLINICAL EXAMINATION: He is alert, oriented, and cooperative. He is uncomfortable. Manipulation of the right lower extremity produces irritability in the right lower extremity, some decreased sensation in the anterior healy on the right, and does appreciate light touch including the foot. The patient says from [id number] the tingling comes and goes in the foot. Motor seems to be intact except as limited by pain. The back is not deformed. IMPRESSION: Previous lumbar discectomy, right paracentral disc bulge, likely recurrent, small at 4-5 that is producing significant symptoms. RECOMMENDATIONS: We will admit the patient for pain control. We recommend intravenous Toradol, narcotics, gabapentin. I talked frankly with the patient about his condition. I am somewhat optimistic that the size of the disc herniation will diminish over time and his symptoms may improve. On the other hand, if they do not improve, he could be an operative candidate and this was also explained to Chris. Unfortunately with this disc very close to the peroneal region, considerations including a redo discectomy would likely include consideration for a lumbar fusion. The recovery for a fusion could be significantly protracted. The patient understands, for example, that he would need to be a nonsmoker for that surgery and he understands that the disc herniation is small and that there is a possibility that his symptoms could resolve, at least back to his baseline with time and medications. He would like to try some conservative management prior to considering surgery. We will implement a pain control regimen, try to mobilize the patient, and anticipate discharge over the next 1-2 days.
== END 2019-04-26 10:45 | disposition home or self-care (01) | DRG 347 ==
LOC: M ED 11:40 → M ED INP 20:01 → ENRESERVDT 20:28 → ENRESERVTM 20:28 → M MS5PR 21:15
PROVIDERS: ADMIT Orthopaedic Surgery; ATTEND Orthopaedic Surgery
DX: M51.16 Intervertebral disc disorders with radiculopathy, lumbar region (principal); F17.200 Nicotine dependence, unspecified, uncomplicated; Z98.890 Other specified postprocedural states; Z91.030 Bee allergy status; Z91.013 Allergy to seafood; Z79.899 Other long term (current) drug therapy; Z79.1 Long term (current) use of non-steroidal anti-inflammatories (NSAID)

== ENCOUNTER → 2019-07-31 | Outpatient (CLI) | payer BC ==
[~2019-07-31] MED LIST changes: +AMLO-179; +CELE1CAP4 PO; +CYCL-707 PO; -CYCL10TA PO; +MS C15TA8 PO; +PERC5TAB12 PO
== END ==
LOC: M LABSMTC 09:41
PROVIDERS: ATTEND Physical Medicine & Rehabilitation
DX: Z11.59 Encounter for screening for other viral diseases (principal)

== ENCOUNTER → 2019-08-12 | Outpatient (CLI) | payer BC | LOC: M LABSMTC 11:49 | PROVIDERS: ATTEND Orthopaedic Surgery | DX: Z03.89 Encounter for observation for other suspected diseases and conditions ruled out (principal); Z11.59 Encounter for screening for other viral diseases ==

== ENCOUNTER → 2019-11-05 | Outpatient (CLI) | payer BC ==
[~2019-11-05] MED LIST changes: +[UNRECOGNIZED DRUG - CODE] IM; -[UNRECOGNIZED DRUG - CODE] IM
[2019-11-05 16:48] LABS: BLOOD UREA NITROGEN 13 MG/DL (7-18); CREATININE FOR GFR 0.84 MG/DL (0.70-1.30); GLOMERULAR FILTRATION RATE > 60.0 (>60)
== END ==
LOC: M WUC 11:23
PROVIDERS: ATTEND Orthopaedic Surgery Orthopaedic Surgery of the Spine
DX: M54.5 Low back pain (principal); M25.551 Pain in right hip

== ENCOUNTER → 2019-12-07 | Outpatient (REF) | payer BC ==
[2019-12-07 17:03] LABS: APPEARANCE, URINE CLEAR (CLEAR); BACTERIA, URINE AUTO NEGATIVE (NEGATIVE); BILIRUBIN, URINE AUTO NEGATIVE (NEGATIVE); BLOOD, URINE BLOOD NEGATIVE (NEGATIVE); COLOR, URINE YELLOW (YELLOW); GLUCOSE, URINE (UA) AUTO NEGATIVE (NEGATIVE); KETONE, URINE AUTO TRACE mg/dL (NEGATIVE); LEUKOCYTE ESTERASE, URINE AUTO NEGATIVE (NEGATIVE); NITRITE, URINE AUTO NEGATIVE (NEGATIVE); PROTEIN, URINE AUTO NEGATIVE (NEGATIVE); RBC, URINE AUTO 2 /HPF (0-3); SPECIFIC GRAVITY URINE AUTO 1.018 (1.002-1.035); SQUAMOUS EPITHELIAL CELL UR AU 0 /HPF (0-6); WBC, URINE AUTO 0 /HPF (0-3)
== END ==
LOC: M LAB REF 16:33
PROVIDERS: ATTEND Internal Medicine
DX: M51.26 Other intervertebral disc displacement, lumbar region (principal); Z01.818 Encounter for other preprocedural examination

== ENCOUNTER → 2024-09-01 | Outpatient (REF) | payer BC ==
[~2024-09-01] MED LIST changes: +GABA-1490 PO; -GABA600T4 PO
[2024-09-01 21:30] LABS: HEPATITIS C VIRUS ABY INDEX > 11.00 INDEX (<0.8)
[2024-09-02 13:30] LABS: ATYPICAL LYMPH 3 % (0-5); EOSINOPHILS 1 % (0-3); LYMPHOCYTES 54 % (16-44); MONOCYTES 11 % (0-5); NEUTROPHILS 31 % (28-66)
[2024-09-02 13:31] LABS: PLATELET ESTIMATE NORMAL (NORMAL)
[2024-09-03 23:33] LABS: HCV RNA QUANTITATION 59300.0 IU/mL (NOT DETECTED); HCV RNA log10 4.77 Log IU/mL (NOT DETECTED)
== END ==
LOC: M LAB REF 17:44
PROVIDERS: ATTEND Nurse Practitioner Family
DX: R74.01 Elevation of levels of liver transaminase levels (principal)

== ENCOUNTER → 2024-09-07 | Outpatient (REF) | payer BC | LOC: M LAB REF 17:41 | PROVIDERS: ATTEND Internal Medicine | DX: R74.8 Abnormal levels of other serum enzymes (principal); F19.10 Other psychoactive substance abuse, uncomplicated ==

== ENCOUNTER → 2024-10-05 | Day surgery (SDC) | payer BC ==
[~2024-10-05] VITALS: Ht 182.9 cm; Wt 74.8 kg
[~2024-10-05] MED LIST changes: +LIDOCAINE 2% 100 MG/5 ML SDV (FOR ANES.) As Ordered ONE; +[UNRECOGNIZED DRUG - CODE] IM; -[UNRECOGNIZED DRUG - CODE] IM
[2024-10-05 12:51] VITALS: TEMP 98.9
[2024-10-05 13:11] VITALS: BP 129/88; O2SAT 96
== END | disposition home or self-care (01) ==
LOC: M OPP 11:22
PROVIDERS: ATTEND Surgery
DX: K57.30 Diverticulosis of large intestine without perforation or abscess without bleeding (principal); K64.2 Third degree hemorrhoids; K92.1 Melena; R10.13 Epigastric pain; Z91.030 Bee allergy status; Z91.013 Allergy to seafood; F17.210 Nicotine dependence, cigarettes, uncomplicated
CPT/HCPCS: 43235; 45378; J3010

== ENCOUNTER → 2025-01-14 | Outpatient (REF) | payer BC ==
[~2025-01-14] MED LIST changes: -LIDOCAINE 2% 100 MG/5 ML SDV (FOR ANES.) As Ordered ONE
== END ==
LOC: M LAB REF 16:46
PROVIDERS: ATTEND Physician Assistant
DX: J06.9 Acute upper respiratory infection, unspecified (principal); R11.2 Nausea with vomiting, unspecified